=== PATIENT | female | born 1990 | race African-American/Black ===

== ENCOUNTER 2023-12-08 01:04 | Emergency (ER) | payer OTHER, SELFPAY ==
[2023-12-08] VITALS (7 sets, daily range): BP systolic 104–118; BP diastolic 61–80; PULSE 67–92; RESP 14–16; TEMP 36.7–37; O2SAT 96–100; BMI 21.5
--- NOTE | 2023-12-08 03:57 | ED.EXTPRO ---
HPI - Extremity Problem General Chief complaint: Extremity Injury, Lower Stated complaint: HIP PAIN Time Seen by Provider: 12/08/23 03:23 Source: patient Mode of arrival: ambulatory Limitations: no limitations History of Present Illness ED Provider: bijal VALENZUELA Narrative: Patient with history of substance abuse complaining of nonspecific left leg pain does not use any IV drug patient has been sleeping since she arrived no recent injury Related Data Allergies Allergy/AdvReac Type Severity Reaction Status Date / Time No Known Allergies Allergy Verified 12/08/23 01:17 Review of Systems Review of Systems: Yes all other systems are reviewed and are negative [facility] Social History Social History Smoked in Last 30 Days: Yes Use of substances other than those prescribed or required for medical reasons: Yes Substance Use Type: Crack/Cocaine and Heroin Substance Use Frequency: Daily Advance Directives: No Advance Directives Information Provided: No Do you have a plan to hurt others: No Plan Physical Exam Vital Signs: Vital Signs: Last Vital Signs Temp 98.1 F 12/08/23 06:00 Pulse 77 12/08/23 06:00 Resp 16 12/08/23 06:00 BP 113/68 12/08/23 06:00 Pulse Ox 97 12/08/23 06:00 O2 Del Method Room Air 12/08/23 06:00 BMI result Body Mass Index 21.5 Appearance: Alert. Oriented X3. No acute distress. Sleeping Eyes: PERRLA, No Nystagmus ENT: Pharynx normal. Oral Mucosa moist Neck: Normal inspection. Neck supple. CVS: Normal heart rate and rhythm. Pulses normal. no wheezing/rales/rhonchi Abdomen: Soft and nontender. Bowel sounds are present, no mass palpable, no CVA tenderness Skin: Skin warm and dry. Normal skin color. Normal skin turgor. Extremities: No lower extremity edema. No calf tenderness soft tissue tenderness very superficial no skin color change neurovascular intact Neuro: Oriented X 3. No motor deficit. Medications Administered Discontinued Medications Generic Name Dose Route Start Last Admin Trade Name Freq PRN Reason Stop Dose Admin Ibuprofen 600 mg 12/08/23 03:57 12/08/23 04:10 Ibuprofen 600 Mg Tablet PO 12/08/23 03:58 600 mg ONCE ONE Administration Medical Decision Making Medical Decision Making [facility] Narrative: Patient with superficial muscular pain does not seem to be in any distress will give ibuprofen discharge patient home 6AM patient's woke up from sleep now she wants to go to detox denies any SI will consult care team Lab Data Labs: Lab Results 12/08/23 Range/Units 06:56 Urine Color Dark Yellow Urine Appearance Cloudy Urine pH 5.5 (5.0-9.0) Ur Specific [place] >= 1.030 H (1.005-1.025) Urine Protein 30 (1+) H (Neg-Trace) mg/dL Urine Glucose (UA) Negative (Negative) mg/dL Urine Ketones 40 (Negative) mg/dL Urine Blood Large (3+) H (Negative) Urine Nitrite Negative (Negative) Ur Leukocyte Esterase Trace H (Negative) Urine RBC 6-10 H (0-2) /HPF Urine WBC 11-20 H (0-5) /HPF Ur Squamous Epith Cells 11-20 (0-2) /HPF Urine Bacteria 4+ (None Seen) Hyaline Casts 3-5 (0-2) /LPF Discharge Plan Discharge Clinical Impression: Left leg pain, Polysubstance abuse Patient Disposition: Still a Patient Print Language: Korean
[2023-12-08] MEDS: Ibuprofen 600 MG TABLET PO (04:10)
--- NOTE | 2023-12-08 06:37 | PC.NURSE ---
pt would like to stay to have help with detox at this time
--- NOTE | 2023-12-08 06:57 | PC.NURSE ---
pt provided urine sample. given food per request
[2023-12-08 07:14] LABS: Appearance Urine Cloudy; Color Urine Dark Yellow; Glucose Urine UA Negative (Negative); Leukocyte Esterase Urine Trace (Negative); Nitrite Urine Negative (Negative); PH 5.5 (5.0-9.0); Specific Gravity - Urine >= 1.030 (1.005-1.025); UMIC TRIGGER UACC YES; Urine Blood Large (3+) (Negative); Urine Ketones 40 mg/dL (Negative); Urine Protein 30 (1+) mg/dL (Neg-Trace)
[2023-12-08 07:19] LABS: Bacteria Urine 4+ (None Seen); UACC Culture Trigger YES
--- NOTE | 2023-12-08 07:43 | PC.NURSE ---
patient a&ox3, pt rr equal/non labored, pt c/o bilateral leg pain which she previously had been medicated for, pt requesting po as well, pt labs drawn, CLARK obtained as pt is now requesting detox- will continue to monitor.
[2023-12-08 07:46] LABS: MANUAL DIFF FLAG NO
[2023-12-08 07:52] LABS: Basophils Absolute Auto 0.1 X10*3/uL (0.0-0.2); Basophils Percent Auto 0.8 % (0-2); Eosinophils Absolute Auto 0.1 X10*3/uL (0.0-0.4); Eosinophils Percent Auto 0.8 % (0-4); Hematocrit 42.7 % (37.0-47.0); Hemoglobin 14.5 g/dl (12.0-16.0); Imm Gran Abs Auto 0.03 X10*3/uL (0.00-0.03); Imm Gran Pct Auto 0.4 % (0.0-0.4); Lymphocytes Absolute Auto 1.6 X10*3/uL (1.2-4.9); Mean Corpuscular Hemoglobin 29.8 pg (27.0-33.0); Mean Corpuscular Volume 87.7 fL (80.0-98.0); Mean Platelet Volume 10.8 fL (9.4-12.3); Monocytes Absolute Auto 0.7 X10*3/uL (0.1-1.2); Monocytes Percent Auto 8.6 % (2-11); Neutrophils Absolute Auto 5.3 x10*3/uL (2.0-8.3); Neutrophils Percent Auto 68.4 % (45-73); Platelet Count 264 X10*3/uL (160-400); Red Blood Count 4.87 X10*6/uL (4.20-5.50); Red Cell Distribution Width 13.4 % (11.0-16.0); White Blood Count 7.7 X10*3/uL (4.8-10.8)
[2023-12-08 07:53] LABS: Amphetamine Screen Urine Not Detected (Not Detect); Barbiturates, Urine Not Detected (Not Detect); Benzodiazepines Screen Urine Not Detected (Not Detect); Buprenorphine Scr Not Detected (Not Detect); Cannabinoid Screen Urine Not Detected (Not Detect); Cocaine Screen Urine POSITIVE (Not Detect); Fentanyl, urine Not Detected (Not Detect); Methadone Screen, Urine Not Detected (Not Detect); Opiate Screen Urine Not Detected (Not Detect); Oxycodone Screen Urine Not Detected (Not Detect); Phencyclidine Screen Urine Not Detected (Not Detect)
--- NOTE | 2023-12-08 08:04 | PC.NURSE ---
Belongings Belongings placed in C-3
[2023-12-08 08:12] LABS: Alanine Aminotransferase 126 U/L (0-31); Albumin Level 4.2 g/dL (3.5-5.0); Alkaline Phosphatase 60 U/L (39-117); Anion Gap 14 (12-20); Aspartate Amino Transferase 314 U/L (5-31); Bilirubin Total 2.4 mg/dL (0.0-1.0); Blood Urea Nitrogen 35 mg/dL (9-16); Calcium 8.7 mg/dL (8.4-10.2); Carbon Dioxide 25 mmol/L (22-29); Chloride 104 mmol/L (96-108); Estimated Glomerular Filt Rate > 60; Ethanol < 10 mg/dL; Glucose Random 133 mg/dL (60-115); Potassium 3.4 mmol/L (3.3-5.1); Sodium 140 mmol/L (135-145); Total Protein 6.8 g/dL (6.5-8.0)
--- NOTE | 2023-12-08 08:59 | PC.NURSE ---
pt requesting detox, denies si/hi, notified provider, addiction consult placed
--- NOTE | 2023-12-08 11:32 | PC.NURSE ---
pt sleeping, wakes to verbal stimulus, c/o bilateral leg pain, will obtain vitals and continue to monitor
--- NOTE | 2023-12-08 18:07 | PC.NURSE ---
pt sleeping, care team is aware that the patient is awaiting their consult since addiction services isnt available today.
--- NOTE | 2023-12-08 23:05 | PC.NURSE ---
Care team at bedside providing recovery services. At this time pt reports not being interested as pt is homeless. Provider made aware.
--- NOTE | 2023-12-08 23:08 | PC.NURSE ---
Pt refuses vitals at this time stating I am leaving, please don't come back. Provider made aware.
--- NOTE | 2023-12-08 23:41 | MHC.EDTECH ---
Pt refusing to let this tech obtain vital signs.
[2023-12-09 03:11] VITALS: BP 109/54; PULSE 71; RESP 16; TEMP 36.8; O2SAT 97
[2023-12-09 06:07] VITALS: BP 109/54; PULSE 71; RESP 16; TEMP 36.8; O2SAT 97
== END 2023-12-09 06:08 | disposition home or self-care (01) ==
PROVIDERS: Emergency Provider Internal Medicine
DX: M79.605 Pain in left leg (principal); F11.10 Opioid abuse, uncomplicated; F14.10 Cocaine abuse, uncomplicated; Z79.899 Other long term (current) drug therapy; Z51.81 Encounter for therapeutic drug level monitoring; Z71.51 Drug abuse counseling and surveillance of drug abuser
CPT/HCPCS: 36415; 80053; 80307; 81001; 85025; 87086; 99284